=== PATIENT | female | born 1970 | race Caucasian/White ===

== ENCOUNTER 2018-03-29 13:00 | Day surgery (SDC) | payer OTHER ==
[2018-03-24 19:02] VITALS: BMI 24.3
[2018-03-29 13:41] LABS: INR 0.93 (0.82-1.09); PROTHROMBIN TIME (PATIENT) 10.5 SEC (9.7-13.0)
[2018-03-29 13:44] LABS: ACTIVATED PTT 27.8 SECONDS (26.9-34.4)
[2018-03-29] MEDS ORDERED: PROPOFOL 20 ML ONE ×2 (14:26)
[2018-03-29] MEDS ORDERED: MIDAZOLAM HCL 2 MG/2 ML SINGLE DOSE VIAL ONE (14:26)
[2018-03-29] MEDS ORDERED: DEXAMETHASONE SOD PHOSPHATE 4 MG/1 ML VIAL ONE (14:27)
[2018-03-29] MEDS ORDERED: KETOROLAC TROMETHAMINE 30 MG/1 ML VIAL ONE (14:27)
[2018-03-29] MEDS ORDERED: oxyCODONE HCL 5 MG TABLET PO PRN (14:47)
[2018-03-29] MEDS ORDERED: ONDANSETRON 4 MG/2 ML VIAL IVPUSH PRN (14:47)
[2018-03-29] MEDS ORDERED: PROMETHAZINE HCL 25 MG/1 ML VIAL IVPB PRN (14:48)
--- NOTE | 2018-03-29 14:49 | HP ---
History & Physical Update - History History: No Change Currently as noted:: menorrhagia, duplicated vagina/cx/uterus - Physical Physical: No Change - Assessment Assessment: No Change Currently as noted:: menorrhagia, duplicated vagina/cx/uterus - Plan Currently as noted:: Hysteroscopy, D&C
[2018-03-29] MEDS ORDERED: ceFAZolin SODIUM 1 GM VIAL IVPB ONE (15:00)
[2018-03-29] MEDS ORDERED: LACTATED RINGERS SOLUTION 1,000 ML IV SCH (15:00)
--- NOTE | 2018-03-29 15:55 | OP ---
Operative Note - Note: Operative Date: 03/29/18 Pre-Operative Diagnosis: Menometrorrhagia, duplication of vagina/cervix/uterus Operation: Hysteroscopy, D&C, intraoperative US guidance Findings: EUA= slightly enlarged uterus, no pelvic masses, single ectocervix with single external cervical os. Hysteroscopy= single external cervical os and endocervical canal that bifurcates at ~1.5cm into two endocervical canals that open into two uterine cavities by a thick septum. A single utrine ostium is visualized w/in each uterine cavity. There are no endometrial or uterine lesions/masses.
--- NOTE | 2018-03-29 16:36 | OP ---
DATE OF OPERATION: 03/29/2018 PREOPERATIVE DIAGNOSIS: Menometrorrhagia and duplication of vagina, cervix, and uterus. POSTOPERATIVE DIAGNOSIS: Menometrorrhagia and duplication of vagina, cervix, and uterus. PROCEDURE: Hysteroscopy, dilatation and curettage, intraoperative ultrasound guidance. SURGEON: Masoud Rincon MD CANDY COUNTER CLERK: None. ANESTHESIA: General. ANESTHESIOLOGIST: Adam Marshall MD COMPLICATIONS: None. PATHOLOGY: Endometrial currettings. ESTIMATED BLOOD LOSS: 5 mL. IV FLUIDS: 600 mL. FINDINGS: Examination under anesthesia revealed a slightly enlarged uterus with no pelvic or adnexal masses. 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 There was a single external cervical os and no masses or lesions were noted. At hysteroscopy a single external cervical os was noted leading into a single endocervical canal. The endocervical canal bifurcates at a depth of approximately 1.5 cm into 2 endocervical canals that open into 2 separate uterine cavities by a thick septum. There is a single uterine ostium visualized within each uterine cavity. There are no endometrial or uterine lesions or masses. The right uterine cavity appeared to be slightly larger than the left. No other abnormalities noted. PROCEDURE: The patient was met preoperatively. The risks, benefits, and alternatives of surgery were discussed in details. All questions were answered. The patient was brought to the OR with the IV running. She was placed on the surgical table in the supine position. The general anesthesia was established without difficulty. A time-out procedure was conducted as per standard protocol. The patient was then prepped and draped in the usual sterile fashion. She was maintained in a dorsal lithotomy position using adjustable Bonifacio stirrups. A weighted speculum was introduced inside the vagina with good visualization of the cervix. The cervix was grasped with a single toothed tenaculum. The vaginal canal and cervix were examined closely with the findings as described above. An ultrasound-guidance was then used to carefully sound the uterus and the left and the right uterine cavities were identified. Afterwards a hysteroscope was used and the hysteroscope was gently advanced into the endocervical canal. Approximately 1.5 cm into the endocervical canal there was a bifurcation noted leading into the left and right separate endocervical canals. Each endocervical canal was then entered into a uterine cavity. The uterine cavities appeared to be within normal limits and a single fallopian tube ostium was noted to be present in each uterine cavity. The hysteroscope was then removed and a uterine curettage was performed under direct ultrasound guidance. Care was taken to curette each uterine cavity separately; however, the specimens were submitted together as one. Once this completed and good hemostasis was confirmed, all of the instruments were removed from the patient. Sponge, lap and instrument counts were correct. The patient was returned to supine position and transferred to recovery room, awakened in a stable condition. Rosa [id number]
[2018-03-29] MEDS ORDERED: oxyCODONE HCL 5 MG TABLET ONE (16:52)
[2018-03-29 17:45] VITALS: BP 108/63; PULSE 62; TEMP 97.5
[2018-03-30] MEDS ORDERED: LEVOTHYROXINE NA 125 MCG TABLET (FP) PO SCH (07:00)
--- NOTE | 2018-04-04 12:55 | PATH ---
Surgical Pathology Report Patient Name: ANDREA REBOLLAR [facility]. Rec. #: [id number] /Age/Gender: 1970 (Age: 47) / F Account: [id number] Location: [facility] SURGICAL Taken: 03/29/2018 Received: 03/30/2018 Reported: 04/04/2018 Physicians: Masoud Rincon M.D. Specimen(s) Received ENDOMETRIAL CURETTINGS Clinical History Menorrhagia Final Diagnosis ENDOMETRIAL CURETTINGS: ENDOMETRIAL POLYP, FRAGMENTS. SEPARATE PROLIFERATIVE TYPE ENDOMETRIUM WITH SYNCYTIAL PAPILLARY CHANGE. 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 Positive and negative controls (internal if applicable) show appropriate results. Interdepartmental case reviewed with consensus on diagnosis. This case was discussed with Dr. Rincon on April 04, 2018. Electronically Signed Boubacar Goldberg M.D. Gross Description Received in formalin labeled "endometrial curetting," is a 3.0 x 2.7 x 0.3 cm aggregate of briones-brown soft tissue fragments. The formalin is filtered and the specimen is entirely submitted in 2 cassettes. /03/30/201803/30/2018
== END 2018-03-29 17:45 | disposition home or self-care (01) ==
LOC: JASU-SURG 13:00
PROVIDERS: ATTEND Obstetrics & Gynecology
PROC: 0UDB8ZX Extraction of Endometrium, Via Natural or Artificial Opening Endoscopic, Diagnostic (ICD-10-PCS; principal; 2018-03-29 14:30)
DX: N92.1 Excessive and frequent menstruation with irregular cycle (principal); Q52.10 Doubling of vagina, unspecified; Q51.820 Cervical duplication; Q51.2 Other doubling of uterus
CPT/HCPCS: 36415; 76998-TC; 84702; 85610; 85730; 86850; 86900; 86901; 88305-TC; 94760

== ENCOUNTER 2022-08-22 13:39 | Emergency (ER) | payer SELFPAY ==
[2022-08-22] MEDS ORDERED: predniSONE 20 MG TABLET (UD) PO ONE (13:55)
[2022-08-22] MEDS ORDERED: LORATADINE 10 MG TABLET PO ONE (13:55)
[2022-08-22] MEDS ORDERED: NAPHAZOLINE/PHENIRAMINE OPHTHALMIC 15 ML BOTTLE OU ONE (13:55)
[2022-08-22] MEDS ORDERED: LORATADINE 10 MG TABLET ONE (13:58)
[2022-08-22] MEDS ORDERED: predniSONE 20 MG TABLET (UD) ONE (13:58)
[2022-08-22 13:59] VITALS: BP 144/104; PULSE 78; RESP 20; TEMP 98.2; BMI 22.6
== END 2022-08-22 14:25 | disposition home or self-care (01) ==
LOC: FER 13:39
DX: H10.45 Other chronic allergic conjunctivitis (principal)
CPT/HCPCS: 99283-25

== ENCOUNTER 2023-08-23 15:40 | Emergency (ER) | payer OTHER ==
[2023-08-23 16:00] VITALS: BP 146/104; PULSE 83; RESP 17; TEMP 98; BMI 25.7
== END 2023-08-23 16:28 | disposition home or self-care (01) ==
LOC: FER 15:40
DX: R22.32 Localized swelling, mass and lump, left upper limb (principal)
CPT/HCPCS: 99282-25